=== PATIENT | male | born 1940 | race Caucasian/White ===

== ENCOUNTER 2019-01-06 14:32 | Inpatient (IN) | payer MEDICARE, OTHER ==
[~2019-01-06] VITALS: Ht 175.3 cm; Wt 82.7 kg
[2019-01-06] MEDS ORDERED: OMEP40CA2 PO (15:26)
[2019-01-06] MEDS ORDERED: MERC50TA2 PO ×2 (15:26→23:33)
[2019-01-06 19:05] LABS: BASO # 0.1 10^3/uL (0.0-0.2); BASO % 1.2 % (0.0-1.0); EOS # 0.1 10^3/uL (0.0-0.50); HEMATOCRIT 44.6 % (42.0-52.0); HEMOGLOBIN 15.3 g/dl (13.5-17.5); LYMPH # 0.9 10^3/uL (1.5-4.5); LYMPH % 16.7 % (24.0-44.0); MEAN CORPUSCULAR HGB CONC 34.3 g/dl (32.0-36.5); MEAN CORPUSCULAR VOLUME 96.3 fl (80.0-96.0); MONO # 0.4 10^3/uL (0.0-0.8); MONO % 7.8 % (0.0-5.0); NEUTROPHILS # 3.7 10^3/uL (1.8-7.7); NEUTROPHILS % 71.9 % (36.0-66.0); PLATELET COUNT, AUTOMATED 183 10^3/uL (150-450); RED BLOOD COUNT 4.63 10^6/uL (4.30-6.10); WHITE BLOOD COUNT 5.1 10^3/uL (4.0-10.0)
[2019-01-06 19:19] LABS: BLOOD UREA NITROGEN 14 MG/DL (7-18); CARBON DIOXIDE LEVEL 29 MEQ/L (21-32); CHLORIDE LEVEL 105 MEQ/L (98-107); CREATININE FOR GFR 1.06 MG/DL (0.70-1.30); GLOMERULAR FILTRATION RATE > 60.0 (>42); GLUCOSE, FASTING 103 MG/DL (70-100); POTASSIUM SERUM 4.8 MEQ/L (3.5-5.1); SODIUM LEVEL 139 MEQ/L (136-145)
--- NOTE | 2019-01-06 19:56 | REPVR ---
EXAM: CT Abdomen and Pelvis Without Contrast EXAM DATE/TIME: 01/06/2019 6:58 PM CLINICAL HISTORY: 78 years old, male; Pain; Abdominal pain; Generalized; Additional info: Riccardo hematuria without pain TECHNIQUE: Imaging protocol: Axial computed tomography images of the abdomen and pelvis without contrast. Coronal and sagittal reformatted images were created and reviewed. Radiation optimization: All CT scans at this facility use at least one of these dose optimization techniques: automated exposure control; mA and/or kV adjustment per patient size (includes targeted exams where dose is matched to clinical indication); or iterative reconstruction. COMPARISON: No relevant prior studies available. FINDINGS: Lower thorax: Clear lung bases. Normal size heart. ABDOMEN: Liver: There is a 3.6 CM cyst of the left lobe of the liver. The heart is normal in size. Gallbladder and bile ducts: The gallbladder is fluid filled. Normal common bile duct. The cecum is in the right pelvis and there is a normal-appearing appendix. Pancreas: Normal pancreas. Spleen: Normal spleen. Adrenals: Normal adrenal glands. Kidneys and ureters: There is some stranding along the margin of the right and left kidney. Probably chronic. Stomach and bowel: There is thickening and edema of the bowel wall distal sigmoid colon and rectum. This is suspicious for changes of colitis. There are scattered air-fluid levels. Appendix: Normal appendix. Reproductive: There is massive enlargement of the prostate. There is severe elevation of the base of the urinary bladder with a 5 CM by 2 CM conglomerate of high density blood in the dependent portion of the urinary bladder. ABDOMEN and PELVIS: Intraperitoneal space: There is no evidence of pneumoperitoneum. Bones/joints: No acute fracture. No dislocation. Soft tissues: Unremarkable. Vasculature: There is calcification of the aorta consistent with atherosclerotic change. Lymph nodes: Normal. No enlarged lymph nodes. IMPRESSION: 1. There is edema and thickening of the bowel wall sigmoid colon and rectum which may be secondary to focal colitis. 2. There is massive enlargement of prostate with impression on the floor of the urinary bladder. There is a large area of hematoma, high density acute blood measuring 5 CM in transverse dimension by 2 CM in thickness.. Electronically signed by: Cedrick Corrigan On 01/06/2019 19:56:43 PM
[2019-01-06] MEDS ORDERED: LIDOCAINE 2% 5ML JELLY UROJET TOP ONE (21:30)
[2019-01-06] MEDS ORDERED: PANT-23 PO (23:33)
[2019-01-07] MEDS ORDERED: LABETALOL 100 MG TAB PO SCH (01:00)
[2019-01-07 01:05] VITALS: BP 156/78
--- NOTE | 2019-01-07 01:07 | HPEPDOC ---
[facility] Medical History & Physical Date of Admission Jan 07, 2019 Attending Physician: YOLANDA HEARN MD History and Physical CHIEF COMPLAINT: hematuria HISTORY OF PRESENT ILLNESS: Jesus Beck is a 78 year old male with past medical history BPH, and ulcerative colitis who presents with 4 days of nena and painless hematuria. He states that he first noticed the hematuria when he was at home on Saturday and, although he has not bled with each urination, he has had hesitancy, frequency and constipation. He has had no abdominal pain at this time. Of note, he recently found out that he is unable to continue following his urologist, Dr. Nate Vega in [place], as his urologist will no longer take his insurance. He experienced hematuria in July 2018 and underwent a scope which was negative for any abnormality at that time. He also reports he most recently had his PSA checked and it was around 20. He denies any dizziness, lightheadedness, shortness of breath or palpitations at this time. He also denies any chest pain. In the ED, he underwent bladder irrigation was found to have a large 5 cm clot in his bladder. Urology was consulted and plans to do another scope tomorrow morning. He will be admitted to the medical surgical floor for observation overnight prior to his procedure. PAST MEDICAL HISTORY: 1. Ulcerative colitis 2. History of BPH 3. History of hematuria, scope in July 2018, normal PAST SURGICAL HISTORY: None SOCIAL HISTORY: Lives in [place] with his . Never smoker. Occasional alcohol. FAMILY HISTORY: Noncontributory ALLERGIES: Please see below. REVIEW OF SYSTEMS: A 10 point review of systems was performed and is negative other than what is mentioned in the HPI HOME MEDICATIONS: Please see below. PHYSICAL EXAMINATION: VITAL SIGNS: Temperature 97.9, pulse 75, respiratory rate 18, blood pressure 181/88, pulse oximetry 96 % on room air. GENERAL APPEARANCE: Calm, cooperative, laying in bed, no acute distress HEENT: Moist mucous membranes CARDIOVASCULAR: Regular rate and rhythm, no murmurs, rubs or gallops LUNGS: Clear to auscultation bilaterally ABDOMEN: Soft, nontender, positive bowel sounds, no masses, no organomegaly. The patient has a left inguinal hernia that does not appear to be incarcerated MUSCULOSKELETAL: Moves all extremities well EXTREMITIES: No clubbing, cyanosis or edema NEUROLOGICAL: Cranial nerves II through XII intact with no focal deficits PSYCHIATRIC: Normal mood, normal affect, AAO 3 LABORATORY DATA: See below. IMAGING: CT ABD/PELVIS: 1. There is edema and thickening of the bowel wall sigmoid colon and rectum which may be secondary to focal colitis. 2. There is massive enlargement of prostate with impression on the floor of the urinary bladder. There is a large area of hematoma, high density acute blood measuring 5 CM in transverse dimension by 2 CM in thickness.. MICROBIOLOGY: Please see below. ASSESSMENT: This is a 78-year-old male with a past medical history of BPH and history also of hematuria that again has hematuria for 4 days today. He underwent a bladder irrigation in the ED and was found to have a large 5 cm clot in his bladder, also found on CT scan. He will be admitted to the medical surgical floor for observation tonight with plan to undergo scope by urology in the morning. PLAN: Hematuria -Patient's vitals are stable at this time. BP is somewhat high and will be controlled by oral labetalol -Labs are within normal limits. No sign of anemia or sequelae of acute blood loss -Urology consulted. Appreciate recommendations History of ulcerative colitis: -Patient is on mercaptopurine at home but it does not appear this is on our formulary. Patient will need to bring in home medication -Continue oral Protonix DVT prophylaxis: Support socks CODE STATUS: Full code Vital Signs Vital Signs Date Time Temp Pulse Resp B/P (MAP) Pulse Ox O2 Delivery O2 Flow Rate FiO2 01/06/19 17:55 01/06/19 14:33 97.9 75 18 96 Room Air Laboratory Data Labs 24H Laboratory Tests 2 01/06/19 15:35: Urine Color YELLOW, Urine Appearance TURBIDH, Urine pH 6.0, Urine Specific [place] 1.013, Urine Protein 2+H, Urine Glucose (UA) 1+H, Urine Ketones NEGATIVE, Urine Blood 3+H, Urine Nitrite NEGATIVE, Urine Bilirubin NEGATIVE, Urine Urobilinogen 0.2, Urine Leukocyte Esterase NEGATIVE, Urine WBC (Auto) 7H, Urine RBC (Auto) TNTCH, Urine Hyaline Casts (Auto) 0, Urine Bacteria (Auto) 1+H, Urine Squamous Epithelial Cells 0, Urine Sperm (Auto) 01/06/19 18:54: Immature Granulocyte % (Auto) 0.4, White Blood Count 5.1, Red Blood Count 4.63, Hemoglobin 15.3, Hematocrit 44.6, Mean Corpuscular Volume 96.3H, Mean Corpuscular Hemoglobin 33.0, Mean Corpuscular Hemoglobin Concent 34.3, Red Cell Distribution Width 14.6H, Platelet Count 183, Neutrophils (%) (Auto) 71.9H, Lymphocytes (%) (Auto) 16.7L, Monocytes (%) (Auto) 7.8H, Eosinophils (%) (Auto) 2.0, Basophils (%) (Auto) 1.2H, Neutrophils # (Auto) 3.7, Lymphocytes # (Auto) 0.9L, Monocytes # (Auto) 0.4, Eosinophils # (Auto) 0.1, Basophils # (Auto) 0.1, Nucleated Red Blood Cells % (auto) 0.0, Anion Gap 5L, Glomerular Filtration Rate > 60.0, Blood Urea Nitrogen 14, Creatinine 1.06, Sodium Level 139, Potassium Level 4.8, Chloride Level 105, Carbon Dioxide Level 29, Calcium Level 9.0 CBC/BMP Laboratory Tests 01/06/19 18:54 Red Blood Count 4.63, Mean Corpuscular Volume 96.3 H, Mean Corpuscular Hemoglobin 33.0, Mean Corpuscular Hemoglobin Concent 34.3, Red Cell Distribution Width 14.6 H, Neutrophils (%) (Auto) 71.9 H, Lymphocytes (%) (Auto) 16.7 L, Monocytes (%) (Auto) 7.8 H, Eosinophils (%) (Auto) 2.0, Basophils (%) (Auto) 1.2 H, Neutrophils # (Auto) 3.7, Lymphocytes # (Auto) 0.9 L, Monocytes # (Auto) 0.4, Eosinophils # (Auto) 0.1, Basophils # (Auto) 0.1, Calcium Level 9.0 Home Medications Scheduled Finasteride (Finasteride) 5 Mg Tablet, 5 MG PO DAILY Mercaptopurine (Mercaptopurine) 50 Mg Tablet, 50 MG PO BID Pantoprazole Sodium (Pantoprazole Sodium) 40 Mg Tablet.dr, 40 MG PO DAILY Allergies Coded Allergies: No Known Allergies (Unverified , 01/06/19) GME ATTESTATION GME ATTESTATION My faculty preceptor for this patient encounter was physically present during the encounter and was fully available. All aspects of the patient interview, examination, medical decision making process, and medical care plan development were reviewed and approved by the faculty preceptor. The faculty preceptor is aware and concurs with the plan as stated in the body of this note and will attest to such by his/her cosignature. ATTENDING NOTE I have reviewed the residents note and have personally examined the patient. I agree with the Residents physical examination and assessment and plan. MANA GUAJARDO MD Jan 07, 2019 01:07 NATASHA MCCORMACK MD Jan 09, 2019 19:27
[2019-01-07] MEDS ORDERED: amLODIPine 5 MG TAB PO ONE (01:30)
[2019-01-07 02:12] VITALS: BP 156/78
[2019-01-07 06:00] VITALS: BP 151/73
[2019-01-07 06:11] LABS: BASO # 0.1 10^3/uL (0.0-0.2); BASO % 0.9 % (0.0-1.0); EOS # 0.2 10^3/uL (0.0-0.50); EOS % 2.7 % (0.0-3.0); HEMATOCRIT 43.2 % (42.0-52.0); HEMOGLOBIN 14.6 g/dl (13.5-17.5); LYMPH # 0.8 10^3/uL (1.5-4.5); LYMPH % 11.3 % (24.0-44.0); MEAN CORPUSCULAR HEMOGLOBIN 32.2 pg (27.0-33.0); MEAN CORPUSCULAR HGB CONC 33.8 g/dl (32.0-36.5); MEAN CORPUSCULAR VOLUME 95.4 fl (80.0-96.0); MONO # 0.6 10^3/uL (0.0-0.8); MONO % 8.3 % (0.0-5.0); NEUTROPHILS # 5.1 10^3/uL (1.8-7.7); NEUTROPHILS % 76.5 % (36.0-66.0); PLATELET COUNT, AUTOMATED 177 10^3/uL (150-450); RED BLOOD COUNT 4.53 10^6/uL (4.30-6.10); WHITE BLOOD COUNT 6.7 10^3/uL (4.0-10.0)
[2019-01-07 06:38] LABS: BLOOD UREA NITROGEN 12 MG/DL (7-18); CALCIUM LEVEL 8.2 MG/DL (8.8-10.2); CARBON DIOXIDE LEVEL 27 MEQ/L (21-32); CHLORIDE LEVEL 106 MEQ/L (98-107); CREATININE FOR GFR 0.88 MG/DL (0.70-1.30); GLOMERULAR FILTRATION RATE > 60.0 (>42); GLUCOSE, FASTING 99 MG/DL (70-100); POTASSIUM SERUM 3.5 MEQ/L (3.5-5.1); SODIUM LEVEL 140 MEQ/L (136-145)
--- NOTE | 2019-01-07 08:14 | CR.PDOC ---
General Date of Consultation: Jan 07, 2019 Consultation REASON FOR CONSULTATION/CHIEF COMPLAINT: Gross hematuria. HISTORY OF PRESENT ILLNESS: 78-year-old male with a 2 day history of gross hematuria. Patient reports red urine with clots. He reports a normal urinary stream and has no nocturia. He denies dysuria. He denies a recent history of UTI. He denies a history of stone disease. Patient does have a history of BPH and is not currently being treated. He reports recent episodes of constipation and straining to move his bowels. He also reports increased exercise over the past several weeks. Patient underwent a CT scan in the emergency department show any enlarged prostate with clot within the bladder. A small 18 Maltese three-way Martínez catheter was inserted in the emergency department and continuous bladder irrigation was started. ALLERGIES: Please see below. HOME MEDICATIONS: Please see below. PAST MEDICAL HISTORY: 1. Ulcerative colitis. 2. Hypertension. PAST SURGICAL HISTORY: None FAMILY HISTORY: Noncontributory SOCIAL HISTORY: Nonsmoker REVIEW OF SYSTEMS: 10 Point review of systems was reviewed from the history and physical examination and are noncontributory PHYSICAL EXAMINATION: VITAL SIGNS: Please see below. GENERAL APPEARANCE: Well-developed well-nourished male in no apparent distress. HEENT: Unremarkable. RESPIRATORY: No respiratory distress. CARDIOVASCULAR: No peripheral edema. ABDOMEN: Soft nontender with no masses : Penis circumcised with a Martínez in place. Testes descended bilaterally without masses. EXTREMITIES: Full range of motion. NEUROLOGICAL: Awake and alert with no focal deficits. The 18 Maltese Martínez catheter was removed and a 24 three-way catheter was inserted at the bedside. Continuous bladder irrigation was reinstituted. Clots were manually evacuated from the bladder until the urine was clear. LABORATORY DATA: Please see below. ASSESSMENT/PLAN: 1. BPH. 2. Clot urinary retention Patient will be continued on continuous bladder irrigation until urine remains clear for 24 hours. Patient then can be given a voiding trial. Patient's hematocrit is currently stable. Patient will be started on Proscar 5 mg daily. We will follow with you during his hospitalization. Thank you very much for this consultation. Vital Signs/I&O Vital Signs Date Time Temp Pulse Resp B/P (MAP) Pulse Ox O2 Delivery O2 Flow Rate FiO2 01/07/19 06:00 98.3 72 18 151/73 (99) 94 01/07/19 00:36 Room Air I&O- Last 24 Hours up to 6 AM 01/07/19 06:00 Intake Total 0 ml Output Total 1700 ml Balance -1700 ml Laboratory Data Labs 24H Laboratory Tests 2 01/06/19 15:35: Urine Color YELLOW, Urine Appearance TURBIDH, Urine pH 6.0, Urine Specific [place] 1.013, Urine Protein 2+H, Urine Glucose (UA) 1+H, Urine Ketones NEGATIVE, Urine Blood 3+H, Urine Nitrite NEGATIVE, Urine Bilirubin NEGATIVE, Urine Urobilinogen 0.2, Urine Leukocyte Esterase NEGATIVE, Urine WBC (Auto) 7H, Urine RBC (Auto) TNTCH, Urine Hyaline Casts (Auto) 0, Urine Bacteria (Auto) 1+H, Urine Squamous Epithelial Cells 0, Urine Sperm (Auto) 01/06/19 18:54: Immature Granulocyte % (Auto) 0.4, White Blood Count 5.1, Red Blood Count 4.63, Hemoglobin 15.3, Hematocrit 44.6, Mean Corpuscular Volume 96.3H, Mean Corpuscular Hemoglobin 33.0, Mean Corpuscular Hemoglobin Concent 34.3, Red Cell Distribution Width 14.6H, Platelet Count 183, Neutrophils (%) (Auto) 71.9H, Lymphocytes (%) (Auto) 16.7L, Monocytes (%) (Auto) 7.8H, Eosinophils (%) (Auto) 2.0, Basophils (%) (Auto) 1.2H, Neutrophils # (Auto) 3.7, Lymphocytes # (Auto) 0.9L, Monocytes # (Auto) 0.4, Eosinophils # (Auto) 0.1, Basophils # (Auto) 0.1, Nucleated Red Blood Cells % (auto) 0.0, Anion Gap 5L, Glomerular Filtration Rate > 60.0, Blood Urea Nitrogen 14, Creatinine 1.06, Sodium Level 139, Potassium Level 4.8, Chloride Level 105, Carbon Dioxide Level 29, Calcium Level 9.0 01/07/19 05:31: Immature Granulocyte % (Auto) 0.3, White Blood Count 6.7, Red Blood Count 4.53, Hemoglobin 14.6, Hematocrit 43.2, Mean Corpuscular Volume 95.4, Mean Corpuscular Hemoglobin 32.2, Mean Corpuscular Hemoglobin Concent 33.8, Red Cell Distribution Width 14.3, Platelet Count 177, Neutrophils (%) (Auto) 76.5H, Lymphocytes (%) (Auto) 11.3L, Monocytes (%) (Auto) 8.3H, Eosinophils (%) (Auto) 2.7, Basophils (%) (Auto) 0.9, Neutrophils # (Auto) 5.1, Lymphocytes # (Auto) 0.8L, Monocytes # (Auto) 0.6, Eosinophils # (Auto) 0.2, Basophils # (Auto) 0.1, Nucleated Red Blood Cells % (auto) 0.0, Anion Gap 7L, Glomerular Filtration Rate > 60.0, Blood Urea Nitrogen 12, Creatinine 0.88, Sodium Level 140, Potassium Level 3.5#, Chloride Level 106, Carbon Dioxide Level 27, Calcium Level 8.2L CBC/BMP Laboratory Tests 01/06/19 18:54 Red Blood Count 4.63, Mean Corpuscular Volume 96.3 H, Mean Corpuscular Hemoglobin 33.0, Mean Corpuscular Hemoglobin Concent 34.3, Red Cell Distribution Width 14.6 H, Neutrophils (%) (Auto) 71.9 H, Lymphocytes (%) (Auto) 16.7 L, Monocytes (%) (Auto) 7.8 H, Eosinophils (%) (Auto) 2.0, Basophils (%) (Auto) 1.2 H, Neutrophils # (Auto) 3.7, Lymphocytes # (Auto) 0.9 L, Monocytes # (Auto) 0.4, Eosinophils # (Auto) 0.1, Basophils # (Auto) 0.1, Calcium Level 9.0 01/07/19 05:31 Red Blood Count 4.53, Mean Corpuscular Volume 95.4, Mean Corpuscular Hemoglobin 32.2, Mean Corpuscular Hemoglobin Concent 33.8, Red Cell Distribution Width 14.3, Neutrophils (%) (Auto) 76.5 H, Lymphocytes (%) (Auto) 11.3 L, Monocytes (%) (Auto) 8.3 H, Eosinophils (%) (Auto) 2.7, Basophils (%) (Auto) 0.9, Neutrophils # (Auto) 5.1, Lymphocytes # (Auto) 0.8 L, Monocytes # (Auto) 0.6, Eosinophils # (Auto) 0.2, Basophils # (Auto) 0.1, Calcium Level 8.2 L Allergies Coded Allergies: No Known Allergies (Unverified , 01/06/19) Home Medications Scheduled Mercaptopurine (Mercaptopurine) 50 Mg Tablet, 50 MG PO BID, (Reported) Pantoprazole Sodium (Pantoprazole Sodium) 40 Mg Tablet.dr, 40 MG PO DAILY, (Reported) Cedric Walker MD Jan 07, 2019 08:14
[2019-01-07] MEDS: PANTOPRAZOLE 40MG TAB (PROTONIX) PO SCH (09:45)
[2019-01-07] MEDS: FINASTERIDE 5 MG TAB PO SCH (09:45)
[2019-01-07 14:00] VITALS: BP 158/98
--- NOTE | 2019-01-07 15:05 | IPNPDOC ---
Subjective Date Seen The patient was seen on 01/07/19. Subjective Chief Complaint/HPI Patient is comfortable and was no nuchal present the present time General: Reports: Normal Appetite; Denies: Chills, Night Sweats, Fatigue, Malaise Constitutional: Denies: Chills, Fever, Night Sweats Eyes: Denies: Pain, Vision change ENT: Denies: Head Aches, Ear Pain, Dysphagia Skin: Denies: Rash, Lesions, Breakdown Pulmonary: Denies: Dyspnea, Cough Cardiovascular: Denies: Chest Pain, Palpitations, Orthopnea, Paroxysmal Noc. Dyspnea, Lt Headedness Gastrointestinal: Denies: Nausea, Vomiting, Abdominal Pain, Diarrhea, Constipation Genitourinary: Denies: Dysuria, Frequency, Incontinence, Retention Hematologic: Denies: Bruising, Bleeding Excessively Musculoskeletal: Denies: Neck Pain, Back Pain, Joint Pain, Muscle Pain, Spasms Neurological: Denies: Weakness, Numbness, Change in speech, Confusion Psych: Reports: Mood Normal; Denies: Depression, Memory Issues Objective Physical Examination General Exam: Positive: Alert, No Acute Distress Eye Exam: Positive: PERRLA, Conjunctiva & lids normal, EOMI; Negative: Sclera icteric ENT Exam: Positive: Atraumatic, Mucous membr. moist/pink, Pharynx Normal Neck Exam: Positive: Supple; Negative: JVD, thyromegaly Chest Exam: Positive: Clear to auscultation, Normal air movement Heart Exam: Positive: Rate Normal, Regular Rhythm, Normal S1, Normal S2; Negative: Murmurs, Rubs Telemetry: Positive: No significant arrhythmia Abdomen Exam: Positive: Normal bowel sounds, Soft; Negative: Tenderness, Hepatospenomegaly Extremity Exam: Positive: Normal pulses; Negative: Clubbing, Cyanosis, Edema Skin Exam: Positive: Nl turgor and temperature; Negative: Rash, Breakdown Neuro Exam: Positive: Normal Gait, Normal Speech, Cranial Nerves 3-12 NL, Reflexes 2+ Psych Exam: Positive: Mental status NL, Mood NL, Oriented x 3 Assessment /Plan Problems (1) Hematuria Status: Acute Problem Text: seen by Dr. Walker for urology CBI and progress Continue irrigation. The urine is clear for 24 hours Proscar 5 mg daily Further, as per urology Plan/VTE VTE Prophylaxis Ordered?: No VS, I&O, 24H, Fishbone Vital Signs/I&O Vital Signs Date Time Temp Pulse Resp B/P (MAP) Pulse Ox O2 Delivery O2 Flow Rate FiO2 01/07/19 14:00 98.9 72 18 158/98 (118) 94 01/07/19 00:36 Room Air I&O- Last 24 Hours up to 6 AM 01/07/19 06:00 Intake Total 0 ml Output Total 1700 ml Balance -1700 ml Laboratory Data 24H LABS Laboratory Tests 2 01/06/19 15:35: Urine Color YELLOW, Urine Appearance TURBIDH, Urine pH 6.0, Urine Specific [place] 1.013, Urine Protein 2+H, Urine Glucose (UA) 1+H, Urine Ketones NEGATIVE, Urine Blood 3+H, Urine Nitrite NEGATIVE, Urine Bilirubin NEGATIVE, Urine Urobilinogen 0.2, Urine Leukocyte Esterase NEGATIVE, Urine WBC (Auto) 7H, Urine RBC (Auto) TNTCH, Urine Hyaline Casts (Auto) 0, Urine Bacteria (Auto) 1+H, Urine Squamous Epithelial Cells 0, Urine Sperm (Auto) 01/06/19 18:54: Immature Granulocyte % (Auto) 0.4, White Blood Count 5.1, Red Blood Count 4.63, Hemoglobin 15.3, Hematocrit 44.6, Mean Corpuscular Volume 96.3H, Mean Corpuscular Hemoglobin 33.0, Mean Corpuscular Hemoglobin Concent 34.3, Red Cell Distribution Width 14.6H, Platelet Count 183, Neutrophils (%) (Auto) 71.9H, L ymphocytes (%) (Auto) 16.7L, Monocytes (%) (Auto) 7.8H, Eosinophils (%) (Auto) 2.0, Basophils (%) (Auto) 1.2H, Neutrophils # (Auto) 3.7, Lymphocytes # (Auto) 0.9L, Monocytes # (Auto) 0.4, Eosinophils # (Auto) 0.1, Basophils # (Auto) 0.1, Nucleated Red Blood Cells % (auto) 0.0, Anion Gap 5L, Glomerular Filtration Rate > 60.0, Blood Urea Nitrogen 14, Creatinine 1.06, Sodium Level 139, Potassium Level 4.8, Chloride Level 105, Carbon Dioxide Level 29, Calcium Level 9.0 01/07/19 05:31: Immature Granulocyte % (Auto) 0.3, White Blood Count 6.7, Red Blood Count 4.53, Hemoglobin 14.6, Hematocrit 43.2, Mean Corpuscular Volume 95.4, Mean Corpuscular Hemoglobin 32.2, Mean Corpuscular Hemoglobin Concent 33.8, Red Cell Distribution Width 14.3, Platelet Count 177, Neutrophils (%) (Auto) 76.5H, Lymphocytes (%) (Auto) 11.3L, Monocytes (%) (Auto) 8.3H, Eosinophils (%) (Auto) 2.7, Basophils (%) (Auto) 0.9, Neutrophils # (Auto) 5.1, Lymphocytes # (Auto) 0.8L, Monocytes # (Auto) 0.6, Eosinophils # (Auto) 0.2, Basophils # (Auto) 0.1, Nucleated Red Blood Cells % (auto) 0.0, Anion Gap 7L, Glomerular Filtration Rate > 60.0, Blood Urea Nitrogen 12, Creatinine 0.88, Sodium Level 140, Potassium Level 3.5#, Chloride Level 106, Carbon Dioxide Level 27, Calcium Level 8.2L CBC/BMP Laboratory Tests 01/06/19 18:54 Red Blood Count 4.63, Mean Corpuscular Volume 96.3 H, Mean Corpuscular Hemoglobin 33.0, Mean Corpuscular Hemoglobin Concent 34.3, Red Cell Distribution Width 14.6 H, Neutrophils (%) (Auto) 71.9 H, Lymphocytes (%) (Auto) 16.7 L, Monocytes (%) (Auto) 7.8 H, Eosinophils (%) (Auto) 2.0, Basophils (%) (Auto) 1.2 H, Neutrophils # (Auto) 3.7, Lymphocytes # (Auto) 0.9 L, Monocytes # (Auto) 0.4, Eosinophils # (Auto) 0.1, Basophils # (Auto) 0.1, Calcium Level 9.0 01/07/19 05:31 Red Blood Count 4.53, Mean Corpuscular Volume 95.4, Mean Corpuscular Hemoglobin 32.2, Mean Corpuscular Hemoglobin Concent 33.8, Red Cell Distribution Width 14.3 , Neutrophils (%) (Auto) 76.5 H, Lymphocytes (%) (Auto) 11.3 L, Monocytes (%) (Auto) 8.3 H, Eosinophils (%) (Auto) 2.7, Basophils (%) (Auto) 0.9, Neutrophils # (Auto) 5.1, Lymphocytes # (Auto) 0.8 L, Monocytes # (Auto) 0.6, Eosinophils # (Auto) 0.2, Basophils # (Auto) 0.1, Calcium Level 8.2 L EUN BENITES MD Jan 07, 2019 15:05
[2019-01-07] MEDS: MERCAPTOPURINE 50 MG PO SCH (20:38)
[2019-01-07 22:00] VITALS: BP 139/94
[2019-01-08 06:00] VITALS: BP 154/83
[2019-01-08 06:16] LABS: BASO # 0.1 10^3/uL (0.0-0.2); BASO % 0.6 % (0.0-1.0); EOS # 0.2 10^3/uL (0.0-0.50); EOS % 1.8 % (0.0-3.0); HEMATOCRIT 44.9 % (42.0-52.0); HEMOGLOBIN 15.1 g/dl (13.5-17.5); LYMPH # 0.8 10^3/uL (1.5-4.5); LYMPH % 9.1 % (24.0-44.0); MEAN CORPUSCULAR HEMOGLOBIN 31.9 pg (27.0-33.0); MEAN CORPUSCULAR HGB CONC 33.6 g/dl (32.0-36.5); MEAN CORPUSCULAR VOLUME 94.9 fl (80.0-96.0); MONO # 0.8 10^3/uL (0.0-0.8); MONO % 9.7 % (0.0-5.0); NEUTROPHILS # 6.6 10^3/uL (1.8-7.7); NEUTROPHILS % 78.6 % (36.0-66.0); PLATELET COUNT, AUTOMATED 172 10^3/uL (150-450); RED BLOOD COUNT 4.73 10^6/uL (4.30-6.10); WHITE BLOOD COUNT 8.5 10^3/uL (4.0-10.0)
[2019-01-08 06:31] LABS: BLOOD UREA NITROGEN 16 MG/DL (7-18); CALCIUM LEVEL 8.7 MG/DL (8.8-10.2); CARBON DIOXIDE LEVEL 29 MEQ/L (21-32); CHLORIDE LEVEL 104 MEQ/L (98-107); CREATININE FOR GFR 1.08 MG/DL (0.70-1.30); GLOMERULAR FILTRATION RATE > 60.0 (>42); GLUCOSE, FASTING 108 MG/DL (70-100); POTASSIUM SERUM 3.8 MEQ/L (3.5-5.1); SODIUM LEVEL 138 MEQ/L (136-145)
--- NOTE | 2019-01-08 07:46 | IPNPDOC ---
Date Seen The patient was seen on 01/08/19. Progress Note SUBJECTIVE: Patient is doing well without complaints OBJECTIVE PHYSICAL EXAMINATION: VITAL SIGNS: Please see below. Abdomen benign Urine clear HCT stable LABORATORY DATA, IMAGING STUDIES, MICROBIOLOGY: Please see below. ASSESSMENT AND PLAN: Patient is doing well. Recommend discontinue robison catheter and give patient a voiding trial. Urologically clear for discharge when voiding. Continue Proscar 5 mg daily. Follow up in office one month for cystoscopy. P VS, I&O, 24H, Fishbone Vital Signs/I&O Vital Signs Date Time Temp Pulse Resp B/P (MAP) Pulse Ox O2 Delivery O2 Flow Rate FiO2 01/08/19 06:00 97.8 77 20 154/83 (106) 96 01/07/19 00:36 Room Air I&O- Last 24 Hours up to 6 AM 01/08/19 06:00 Intake Total 570 ml Output Total 2200 ml Balance -1630 ml Laboratory Data 24H LABS Laboratory Tests 2 01/08/19 05:50: Immature Granulocyte % (Auto) 0.2, White Blood Count 8.5, Red Blood Count 4.73, Hemoglobin 15.1, Hematocrit 44.9, Mean Corpuscular Volume 94.9, Mean Corpuscular Hemoglobin 31.9, Mean Corpuscular Hemoglobin Concent 33.6, Red Cell Distribution Width 14.2, Platelet Count 172, Neutrophils (%) (Auto) 78.6H, Lymphocytes (%) (Auto) 9.1L, Monocytes (%) (Auto) 9.7H, Eosinophils (%) (Auto) 1.8, Basophils (%) (Auto) 0.6, Neutrophils # (Auto) 6.6, Lymphocytes # (Auto) 0.8L, Monocytes # (Auto) 0.8, Eosinophils # (Auto) 0.2, Basophils # (Auto) 0.1, Nucleated Red Blood Cells % (auto) 0.0, Anion Gap 5L, Glomerular Filtration Rate > 60.0, Blood Urea Nitrogen 16, Creatinine 1.08, Sodium Level 138, Potassium Level 3.8, Chloride Level 104, Carbon Dioxide Level 29, Calcium Level 8.7L CBC/BMP Laboratory Tests 01/08/19 05:50 Red Blood Count 4.73, Mean Corpuscular Volume 94.9, Mean Corpuscular Hemoglobin 31.9, Mean Corpuscular Hemoglobin Concent 33.6, Red Cell Distribution Width 14.2, Neutrophils (%) (Auto) 78.6 H, Lymphocytes (%) (Auto) 9.1 L, Monocytes (%) (Auto) 9.7 H, Eosinophils (%) (Auto) 1.8, Basophils (%) (Auto) 0.6, Neutrophils # (Auto) 6.6, Lymphocytes # (Auto) 0.8 L, Monocytes # (Auto) 0.8, Eosinophils # (Auto) 0.2, Basophils # (Auto) 0.1, Calcium Level 8.7 L Cedric Walker MD Jan 08, 2019 07:46
[2019-01-08] MEDS: FINASTERIDE 5 MG TAB PO SCH (09:03)
[2019-01-08] MEDS: PANTOPRAZOLE 40MG TAB (PROTONIX) PO SCH (09:03)
[2019-01-08] MEDS: MERCAPTOPURINE 50 MG PO SCH (09:04)
[2019-01-08 14:00] VITALS: BP 127/61
--- NOTE | 2019-01-08 14:03 | DS.PDOC ---
Discharge Summary General Date of Admission Jan 06, 2019 at 23:47 Date of Discharge 01/08/19 Attending Physician: EUN BENITES MD Discharge Summary PROCEDURES PERFORMED DURING STAY: None. ADMITTING DIAGNOSES: 1. Hematuria. DISCHARGE DIAGNOSES: 1.. Hematuria. COMPLICATIONS/CHIEF COMPLAINT: Hematuria. HISTORY OF PRESENT ILLNESS: Jesus Beck is a 78 year old male with past me dical history BPH, and ulcerative colitis who presents with 4 days of nena and painless hematuria. He states that he first noticed the hematuria when he was at home on Saturday and, although he has not bled with each urination, he has had hesitancy, frequency and constipation. He has had no abdominal pain at this time. Of note, he recently found out that he is unable to continue following his urologist, Dr. Nate Vega in [place], as his urologist will no longer take his insurance. He experienced hematuria in July 2018 and underwent a scope which was negative for any abnormality at that time. He also reports he most recently had his PSA checked and it was around 20. He denies any dizziness, lightheadedness, shortness of breath or palpitations at this time. He also denies any chest pain. In the ED, he underwent bladder irrigation was found to have a large 5 cm clot in his bladder. Urology was consulted and plans to do another scope tomorrow morning. He will be admitted to the medical surgical floor for observation overnight prior to his procedure.]. HOSPITAL COURSE: Patient was admitted with the diagnosis of hematuria, unknown etiology. Patient was seen by urology initially had a small Martínez's catheter placement in and was later changed to a larger Martínez cath and continuous bladder bladder irrigation was done. Once the urine was clear of blood. Urology recommended to DC Martínez and after given. Patient to follow widening can be discharged home and follow up with urology as an outpatient for cystoscopy DISCHARGE MEDICATIONS: Please see below. ALLERGIES: Please see below. PHYSICAL EXAMINATION ON DISCHARGE: VITAL SIGNS: Please see below. GENERAL: The normal range] HEENT: PERRLA NECK: Supple, no JVD CARDIOVASCULAR EXAMINATION: S1, S2, regular RESPIRATORY EXAMINATION: Clear to A&P ABDOMINAL EXAMINATION: Benign EXTREMITIES: sinuses, edema SKIN: Normal NEUROLOGICAL EXAMINATION: No motor or focal sensory deficit PSYCHIATRIC EXAMINATION: Normal LABORATORY DATA: Please see below. IMAGING: As above PROGNOSIS: goodgood ACTIVITY: As tolerated. DIET: Regular DISCHARGE PLAN: Follow up with urology as an outpatient DISPOSITION: . Home DISCHARGE INSTRUCTIONS: 1. As above. ITEMS TO FOLLOWUP ON ON OUTPATIENT: 1. Follow up with urology as outpatient. DISCHARGE CONDITION: Stable. TIME SPENT ON DISCHARGE: Greater than 43 minutes. Vital Signs/I&Os Vital Signs Date Time Temp Pulse Resp B/P (MAP) Pulse Ox O2 Delivery O2 Flow Rate FiO2 01/08/19 06:00 97.8 77 20 154/83 (106) 96 01/07/19 00:36 Room Air I&O- Last 24 Hours up to 6 AM 01/08/19 06:00 Intake Total 570 ml Output Total 2200 ml Balance -1630 ml Laboratory Data Labs 24H Laboratory Tests 2 01/08/19 05:50: Immature Granulocyte % (Auto) 0.2, White Blood Count 8.5, Red Blood Count 4.73, Hemoglobin 15.1, Hematocrit 44.9, Mean Corpuscular Volume 94.9, Mean Corpuscular Hemoglobin 31.9, Mean Corpuscular Hemoglobin Concent 33.6, Red Cell Distribution Width 14.2, Platelet Count 172, Neutrophils (%) (Auto) 78.6H, Lymphocytes (%) (Auto) 9.1L, Monocytes (%) (Auto) 9.7H, Eosinophils (%) (Auto) 1.8, Basophils (%) (Auto) 0.6, Neutrophils # (Auto) 6.6, Lymphocytes # (Auto) 0.8L, Monocytes # (Auto) 0.8, Eosinophils # (Auto) 0.2, Basophils # (Auto) 0.1, Nucleated Red Blood Cells % (auto) 0.0, Anion Gap 5L, Glomerular Filtration Rate > 60.0, Blood Urea Nitrogen 16, Creatinine 1.08, Sodium Level 138, Potassium Level 3.8, Chloride Level 104, Carbon Dioxide Level 29, Calcium Level 8.7L CBC/BMP Laboratory Tests 01/08/19 05:50 Red Blood Count 4.73, Mean Corpuscular Volume 94.9, Mean Corpuscular Hemoglobin 31.9, Mean Corpuscular Hemoglobin Concent 33.6, Red Cell Distribution Width 14.2, Neutrophils (%) (Auto) 78.6 H, Lymphocytes (%) (Auto) 9.1 L, Monocytes (%) (Auto) 9.7 H, Eosinophils (%) (Auto) 1.8, Basophils (%) (Auto) 0.6, Neutrophils # (Auto) 6.6, Lymphocytes # (Auto) 0.8 L, Monocytes # (Auto) 0.8, Eosinophils # (Auto) 0.2, Basophils # (Auto) 0.1, Calcium Level 8.7 L Discharge Medications Scheduled Mercaptopurine (Mercaptopurine) 50 Mg Tablet, 50 MG PO BID, (Reported) Pantoprazole Sodium (Pantoprazole Sodium) 40 Mg Tablet.dr, 40 MG PO DAILY, (Reported) Allergies Coded Allergies: No Known Allergies (Unverified , 01/06/19) EUN BENITES MD Jan 08, 2019 14:03
[2019-01-08] MEDS ORDERED: FINA5TAB2 PO (14:39)
--- NOTE | 2019-01-08 20:28 | ECGEPIP ---
Stationary ECG Study [facility] Test Date: 2019-01-07 Pat Name: CORRINE ALLEN Department: Room: H2717-90 Gender: M [employer]: RORO : 1940 Requested By: MANA GUAJARDO Order Number: [id number] Reading MD: Orlando Wallace Measurements Intervals [place] Rate: 73 P: 0 TX: 176 QRS: -48 QRSD: 99 T: 6 QT: 409 QTc: 454 Interpretive Statements Normal sinus rhythm. Late cycle PVC. 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
== END 2019-01-08 16:05 | disposition home or self-care (01) | DRG 696 ==
LOC: M ED 14:32 → M ED INP 23:47 → M MSPAV 01-07 01:04
PROVIDERS: ADMIT Internal Medicine Nephrology; ATTEND Internal Medicine
DX: R31.0 Gross hematuria (principal); K51.90 Ulcerative colitis, unspecified, without complications; N40.1 Benign prostatic hyperplasia with lower urinary tract symptoms; K59.00 Constipation, unspecified; I10 Essential (primary) hypertension; R33.9 Retention of urine, unspecified; Z79.899 Other long term (current) drug therapy

== ENCOUNTER → 2020-01-08 | Outpatient (REF) | payer MEDICARE ==
[~2020-01-08] MED LIST: FINA5TAB2 PO; MERC50TA2 PO; OMEP40CA97 PO; PANT-23 PO
== END ==
LOC: M LAB REF 09:02
PROVIDERS: ATTEND Dermatology
DX: C44.622 Squamous cell carcinoma of skin of right upper limb, including shoulder (principal); C44.629 Squamous cell carcinoma of skin of left upper limb, including shoulder; C44.722 Squamous cell carcinoma of skin of right lower limb, including hip; L90.5 Scar conditions and fibrosis of skin; L57.0 Actinic keratosis
CPT/HCPCS: 11102; 11103; 11642; 13132; 17000; 17003; 88305; 88331; G0463

== ENCOUNTER → 2020-01-13 | Outpatient (REF) | payer MEDICARE | LOC: M LAB REF 18:03 | PROVIDERS: ATTEND Dermatology | DX: C44.622 Squamous cell carcinoma of skin of right upper limb, including shoulder (principal); C44.629 Squamous cell carcinoma of skin of left upper limb, including shoulder; C44.722 Squamous cell carcinoma of skin of right lower limb, including hip ==

== ENCOUNTER → 2020-02-16 | Outpatient (REF) | payer MEDICARE | LOC: M LAB REF 17:08 | PROVIDERS: ATTEND Dermatology | DX: C44.310 Basal cell carcinoma of skin of unspecified parts of face (principal) | CPT/HCPCS: 11102; 88305; G0463 ==

== ENCOUNTER → 2020-03-09 | Outpatient (REF) | payer MEDICARE | LOC: M LAB REF 10:45 | PROVIDERS: ATTEND Dermatology | DX: C44.310 Basal cell carcinoma of skin of unspecified parts of face (principal); L57.8 Other skin changes due to chronic exposure to nonionizing radiation ==

== ENCOUNTER → 2020-04-20 | Outpatient (REF) | payer MEDICARE | LOC: M LAB REF 17:40 | PROVIDERS: ATTEND Dermatology | DX: L57.8 Other skin changes due to chronic exposure to nonionizing radiation (principal) ==

== ENCOUNTER → 2020-06-24 | Outpatient (REF) | payer MEDICARE | LOC: M LAB REF 18:51 | PROVIDERS: ATTEND Dermatology | DX: C44.622 Squamous cell carcinoma of skin of right upper limb, including shoulder (principal); B07.9 Viral wart, unspecified ==

== ENCOUNTER → 2020-08-17 | Outpatient (REF) | payer MEDICARE | LOC: M LAB REF 14:18 | PROVIDERS: ATTEND Dermatology | DX: C44.319 Basal cell carcinoma of skin of other parts of face (principal) ==

== ENCOUNTER → 2020-10-13 | Outpatient (REF) | payer MEDICARE | LOC: M LAB REF 18:18 | PROVIDERS: ATTEND Dermatology | DX: D23.71 Other benign neoplasm of skin of right lower limb, including hip (principal) ==

== ENCOUNTER → 2020-12-30 | Outpatient (REF) | payer MEDICARE | LOC: M LAB REF 14:40 | PROVIDERS: ATTEND Dermatology | DX: C44.722 Squamous cell carcinoma of skin of right lower limb, including hip (principal) | CPT/HCPCS: 11102; 88305; G0463 ==

== ENCOUNTER → 2021-03-22 | Outpatient (REF) | payer MEDICARE ==
[~2021-03-22] MED LIST changes: +OMEP40CA4 PO; -OMEP40CA97 PO
== END ==
LOC: M LAB REF 14:00
PROVIDERS: ATTEND Physician Assistant
DX: C44.629 Squamous cell carcinoma of skin of left upper limb, including shoulder (principal)

== ENCOUNTER → 2021-05-31 | Outpatient (CLI) | payer OTHER ==
[~2021-05-31] MED LIST changes: +PROHANCE 279.3MG/ML 15ML VIAL ONE; +PROHANCE 279.3MG/ML 5ML VIAL ONE
--- NOTE | 2021-05-31 14:02 | REP ---
INDICATION: ABN FINDINGS IMAGING. COMPARISON: CT 05/09/2021. TECHNIQUE: Multiple sequences obtained in the axial, coronal and sagittal planes prior to and following the intravenous administration of 16 cc ProHance. FINDINGS: Prostate is markedly enlarged with diffuse heterogeneous internal signal and enhancement. The findings are nonspecific. The capsule of the prostate appears intact. The seminal vesicles appear symmetrical. The bladder is only mildly distended and not optimally evaluated. There does appear to be diffuse bladder wall thickening, asymmetrically more so on the left side. No adenopathy is seen in the pelvis. No pelvic mass is seen otherwise. There is a small left inguinal hernia containing fat. There are degenerative changes of the lower lumbar spine. In the right iliac bone there is a focal bone lesion measuring 8-9 mm, which demonstrates low signal on T1 and high signal on T2 and appears to enhance. A similar appearing lesion is seen in the left iliac bone measuring about 1.1 cm. IMPRESSION: Markedly enlarged prostate with intact capsule. The findings could represent benign prostatic hypertrophy but underlying neoplasm cannot be excluded. Correlate with PSA measurement and consider transrectal ultrasound-guided biopsy. Suboptimal distention of the bladder. Bladder wall thickening, asymmetrically more so to the left. No gross focal mass. Consider cystoscopy. There is an enhancing bone lesion in the right iliac bone and another in the left iliac bone. Metastatic lesions cannot be excluded. <Electronically signed by Matthew Tomas > 05/31/21 [id number]
== END ==
LOC: M PLAIMG 10:18
PROVIDERS: ATTEND Internal Medicine Gastroenterology
DX: R93.89 Abnormal findings on diagnostic imaging of other specified body structures (principal); N40.0 Benign prostatic hyperplasia without lower urinary tract symptoms
CPT/HCPCS: 72197; A9576

== ENCOUNTER → 2021-09-01 | Outpatient (CLI) | payer MEDICARE, OTHER ==
[~2021-09-01] MED LIST changes: -PROHANCE 279.3MG/ML 15ML VIAL ONE; -PROHANCE 279.3MG/ML 5ML VIAL ONE
--- NOTE | 2021-09-06 15:35 | REP ---
INDICATION: LT ADRENAL GLAND ACTIVITY PER PET SCAN. COMPARISON: CT 05/09/2021, 01/06/2019, PET-CT 07/19/2021. TECHNIQUE: Multiple sequences obtained in the axial and coronal planes prior to and following the intravenous administration of 15 mL ProHance. FINDINGS: A nonenhancing benign cyst is again seen in the left lobe of the liver measuring 4 cm in diameter. The other visualized portions of the liver and spleen are unremarkable. Pancreas is unremarkable. The kidneys are unremarkable. No abnormality is seen of the right adrenal gland. There is mild thickening of the left adrenal gland. This appears unchanged since the exam of 01/06/2019. There are no signal characteristics of an adenoma. Two gastrohepatic lymph nodes are present, the largest 1.2 cm in short axis. There is no free fluid. There is a hiatal hernia. IMPRESSION: Mild thickening of the left adrenal gland. This is nonspecific, there are no signal characteristics of an adenoma. The appearance is unchanged since the prior CT of 01/06/2019. Two mildly enlarged gastrohepatic lymph nodes are present. The largest is 1.2 cm in short axis. <Electronically signed by Matthew Tomas > 09/06/21 [id number]
== END ==
LOC: M PLARAD 08:52
PROVIDERS: ATTEND Internal Medicine Hematology & Oncology
DX: C15.9 Malignant neoplasm of esophagus, unspecified (principal); K76.89 Other specified diseases of liver

== ENCOUNTER → 2022-04-13 | Outpatient (REF) | payer MEDICARE, OTHER | LOC: M SFHCDERM 16:56 | PROVIDERS: ATTEND Dermatology | DX: C44.729 Squamous cell carcinoma of skin of left lower limb, including hip (principal); L82.0 Inflamed seborrheic keratosis ==

== ENCOUNTER 2022-05-23 06:28 | Day surgery (SDC) | payer OTHER ==
[~2022-05-23] VITALS: Ht 176.5 cm; Wt 77.0 kg
[~2022-05-23 06:28] MED LIST changes: +ACETAMINOPHEN 325 MG TAB PO PRN; +ASAC800T3 PO; +BSS IRRIG/VANCO(10MG)/TOBRA(5MG)/EPINEPH(1:1000-0.5CC)500ML BAG-ORONLY IR ONE; +CYCLOPENTOLATE 1% OPHTH SOLN 2 ML BTL OS SCH; +LIDOCAINE 3.5 % 1ML OPHTH TOPICAL GEL OU ONE; +OFLOXACIN 0.3 % (OCUFLOX) OPTH SOL 5ML OS ONE; +PHENYLEPHRINE 2.5% OPHTH SOL 2ML OS SCH; +PHENYLEPHRINE HCL 10 % OPHTH. SOL 5ML OS PRN; +SYNT100T PO; +TROPICAMIDE 1% OPHTH SOLN 2ML OS SCH
[2022-05-23] MEDS ORDERED: LIDOCAINE 1% SDV 5ML VIAL As Ordered ONE (06:48)
[2022-05-23] MEDS ORDERED: CEFUROXIME 1MG/0.1ML INTRACAMERAL INJ As Ordered ONE (06:49)
[2022-05-23] MEDS ORDERED: MIDAZOLAM INJ 2MG/2ML VIAL (J2250 PER 1MG) As Ordered ONE (07:53)
[2022-05-23] MEDS ORDERED: fentaNYL 100 MCG/2 ML INJECTION As Ordered ONE (07:55)
[2022-05-23 08:30] VITALS: BP 119/65
[2022-05-23] MEDS ORDERED: ONDANSETRON 4MG TAB PO PRN (09:00)
[2022-05-23] MEDS ORDERED: acetaZOLAMIDE 500MG ER CAP PO ONE (09:00)
== END 2022-05-23 09:22 | disposition home or self-care (01) ==
LOC: M SDC 06:28
PROVIDERS: ATTEND Ophthalmology
DX: H25.12 Age-related nuclear cataract, left eye (principal); I10 Essential (primary) hypertension; K51.90 Ulcerative colitis, unspecified, without complications; N40.0 Benign prostatic hyperplasia without lower urinary tract symptoms; R97.20 Elevated prostate specific antigen [PSA]; C15.9 Malignant neoplasm of esophagus, unspecified; E66.9 Obesity, unspecified; R31.29 Other microscopic hematuria; K21.9 Gastro-esophageal reflux disease without esophagitis; J44.9 Chronic obstructive pulmonary disease, unspecified; L57.0 Actinic keratosis; E55.9 Vitamin D deficiency, unspecified; H90.3 Sensorineural hearing loss, bilateral; Z79.899 Other long term (current) drug therapy; Z79.890 Hormone replacement therapy; Z91.040 Latex allergy status; Z91.048 Other nonmedicinal substance allergy status
CPT/HCPCS: 66984; J0697; J2250; J3010; V2632

== ENCOUNTER → 2023-01-15 | Outpatient (REF) | payer MEDICARE ==
[~2023-01-15] MED LIST changes: -ACETAMINOPHEN 325 MG TAB PO PRN; -BSS IRRIG/VANCO(10MG)/TOBRA(5MG)/EPINEPH(1:1000-0.5CC)500ML BAG-ORONLY IR ONE; -CYCLOPENTOLATE 1% OPHTH SOLN 2 ML BTL OS SCH; -LIDOCAINE 3.5 % 1ML OPHTH TOPICAL GEL OU ONE; -OFLOXACIN 0.3 % (OCUFLOX) OPTH SOL 5ML OS ONE; -PHENYLEPHRINE 2.5% OPHTH SOL 2ML OS SCH; -PHENYLEPHRINE HCL 10 % OPHTH. SOL 5ML OS PRN; -TROPICAMIDE 1% OPHTH SOLN 2ML OS SCH
== END ==
LOC: M SFHCDERM 17:52
PROVIDERS: ATTEND Physician Assistant
DX: D23.4 Other benign neoplasm of skin of scalp and neck (principal); L57.0 Actinic keratosis; L82.0 Inflamed seborrheic keratosis; Z85.828 Personal history of other malignant neoplasm of skin